=== PATIENT | female | born 2000 | race Caucasian/White ===

== ENCOUNTER 2025-03-26 08:36 | Outpatient (CLI) | payer BC | END 2025-03-26 08:37 | disposition home or self-care (01) | LOC: CSHDTY/OP 08:36 | PROVIDERS: ATTEND Nurse Practitioner Family | DX: Z71.3 Dietary counseling and surveillance (principal) | CPT/HCPCS: 97802 ==

== ENCOUNTER 2025-04-30 10:57 | Outpatient (CLI) | payer BC | END 2025-04-30 10:58 | disposition home or self-care (01) | LOC: CSHDTY/OP 10:57 | PROVIDERS: ATTEND Nurse Practitioner Family | DX: Z71.3 Dietary counseling and surveillance (principal) | CPT/HCPCS: 97802 ==